=== PATIENT | male | born 1985 ===

== ENCOUNTER 2022-06-25 20:21 | Emergency (ER) | payer SELFPAY ==
[~2022-06-25] VITALS: Ht 182.9 cm; Wt 88.5 kg
== END 2022-06-26 00:52 | disposition home or self-care (01) ==
LOC: ER 20:21
DX: F19.10 Other psychoactive substance abuse, uncomplicated (principal)
CPT/HCPCS: 93005; 93010; 99285-25